=== PATIENT | male | born 1950 ===

== ENCOUNTER 2020-04-08 08:21 | Outpatient (CLI) | payer MEDICARE, SELFPAY ==
[2020-04-08 22:21] LABS: COVID-19 RT-PCR UVMMC Result Negative (Negative)
== END 2020-04-08 08:41 ==
PROVIDERS: PCP Physician Assistant Surgical; Visit Provider Physician Assistant Surgical
DX: Z11.59 Encounter for screening for other viral diseases (principal); Z01.818 Encounter for other preprocedural examination
CPT/HCPCS: U0003